=== PATIENT | female | born 2000 | race Caucasian/White ===

== ENCOUNTER 2022-12-21 22:07 | Emergency (ER) | payer MEDICAID ==
[~2022-12-21] VITALS: Ht 162.6 cm; Wt 99.8 kg
--- NOTE | 2022-12-21 22:20 | NUR ---
Patient placed in ER bed 3 for evaluation. Bed in lowest position with siderails up. Instructed to notify ED staff for any changes in condition or worsening of symptoms. Patient verbalized understanding.
[2022-12-21 22:24] VITALS: BP_SYST 142
--- NOTE | 2022-12-21 22:27 | NUR ---
Dr. Chanel at bedside examining the patient.
[2022-12-21] MEDS ORDERED: ONDANSETRON HCL 4 MG/2 ML VIAL IVP ONE (22:45)
[2022-12-21] MEDS ORDERED: NACL 0.9% 1,000 ML IV ONE (22:45)
[2022-12-21] MEDS ORDERED: KETOROLAC TROMETHAMINE 30 MG VIAL IVP ONE (22:45)
--- NOTE | 2022-12-21 22:45 | NUR ---
Abdoulaye flores in [facility] - 12/21/22 at 2349 by YELENA Patient taken to ultrasound.
[2022-12-21 22:59] LABS: BASOPHILS % (AUTO) 0.3 % (0.0-2.0); EOSINOPHILS # (AUTO) 0.1 K/uL (0.0-0.4); EOSINOPHILS % (AUTO) 1.1 % (0.0-4.0); HEMATOCRIT 41.3 % (36-48); HEMOGLOBIN 13.8 g/dL (12.0-16.0); LYMPHOCYTES # (AUTO) 2.2 K/uL (1.0-5.5); LYMPHOCYTES % (AUTO) 21.8 % (20.5-51.5); MEAN CORPUSCULAR HEMOGLOBIN 29 pg (27-31); MEAN CORPUSCULAR HGB CONC 33 % (32-36); MEAN CORPUSCULAR VOLUME 86 fL (79.0-98.0); MONOCYTES # (AUTO) 0.7 K/uL (0.0-1.0); NEUTROPHILS # (AUTO) 7.1 K/uL (1.8-7.7); NEUTROPHILS % (AUTO) 69.8 % (40.0-70.0); PLATELET COUNT (AUTO) 197 K/uL (130-430); RED BLOOD CELL COUNT(AUTO) 4.83 MIL/uL (4.2-6.2); RED CELL DISTRIBUTION WIDTH 14.1 % (9.0-15.0); WHITE BLOOD COUNT (AUTO) 10.1 K/uL (4.8-10.8)
[2022-12-21 23:04] LABS: BILIRUBIN,URINE NEGATIVE (NEGATIVE); BLOOD, URINE NEGATIVE (NEGATIVE); CLARITY/URINE SL CLOUDY (CLEAR); COLOR,URINE YELLOW (YELLOW); GLUCOSE,URINE NEGATIVE (NEGATIVE); KETONES,URINE NEGATIVE (NEGATIVE); LEUKOCYTE ESTERASE ,URINE NEGATIVE (NEGATIVE); NITRITE, URINE NEGATIVE (NEGATIVE); PROTEIN URINE NEGATIVE (NEGATIVE); UROBILINOGEN,URINE 0.2 (0.2-1.0)
[2022-12-21 23:10] LABS: CALCIUM 9.2 mg/dL (8.4-11.0); CREATININE 0.89 mg/dL (0.55-1.30); TOTAL BILIRUBIN 0.4 mg/dL (0.0-1.0)
--- NOTE | 2022-12-21 23:26 | NUR ---
Patient taken to CT.
--- NOTE | 2022-12-21 23:36 | NUR ---
Patient is back from CT.
--- NOTE | 2022-12-21 23:45 | NUR ---
Patient is taken to ultrasound.
--- NOTE | 2022-12-21 23:49 | NUR ---
Patient is back from ultrasound.
--- NOTE | 2022-12-22 00:50 | NUR ---
Patient taken to ultrasound.
--- NOTE | 2022-12-22 01:04 | NUR ---
Patient is back from ultrasound.
[2022-12-22] MEDS ORDERED: CYCL10TA24 PO (01:20)
[2022-12-22] MEDS ORDERED: IBUP-1971 PO (01:20)
[2022-12-22] MEDS ORDERED: LIDO1ADH71 TD (01:20)
[2022-12-22 01:27] VITALS: BP_SYST 115
--- NOTE | 2022-12-22 01:35 | NUR ---
Patient given written and verbal discharge instructions and verbalizes understanding. ER MD discussed with patient the results and treatment provided. Patient in stable condition. ID arm band removed. IV catheter removed intact and dressing applied, no active bleeding. Rx of CYCLOBENZAPRINE, IBUPROFEN, AND LIDOCAINE given. Patient educated on pain management and to follow up with PMD. Pain Scale 0/10. Opportunity for questions provided and answered. Medication side effect fact sheet provided.
== END 2022-12-22 01:27 | disposition home or self-care (01) ==
LOC: SED 22:07
DX: S39.011A Strain of muscle, fascia and tendon of abdomen, initial encounter (principal); Z79.899 Other long term (current) drug therapy; X58.XXXA Exposure to other specified factors, initial encounter; Y93.89 Activity, other specified; Y92.89 Other specified places as the place of occurrence of the external cause; Y99.8 Other external cause status
CPT/HCPCS: 99285; 74176; 96374; 76856; 96361; 96375; 80053; 85025; 87086; 36415; 76376; 81025; 81003; J1885; J2405; J7030